=== PATIENT | female | born 1935 | race Asian ===

== ENCOUNTER 2024-07-21 17:15 | Inpatient (IN) | payer MEDICARE ==
[~2024-07-21] VITALS: Ht 152.4 cm; Wt 419.6 kg
[2024-07-21] MEDS ORDERED: REMEDY ESSENTIAL ZINC PASTE 113 GM TOP PRN (21:45)
[2024-07-21] MEDS ORDERED: ATOR80TA PO (22:24)
[2024-07-21] MEDS ORDERED: AMLO-212 PO (22:24)
[2024-07-21] MEDS ORDERED: CELE200C PO (22:24)
[2024-07-21] MEDS ORDERED: ALPR0.5T8 PO (22:24)
[2024-07-21] MEDS ORDERED: APIX5TAB PO (22:24)
[2024-07-21] MEDS ORDERED: FURO20TA4 PO (22:24)
[2024-07-21] MEDS ORDERED: HYDR200T4 PO (22:24)
[2024-07-21] MEDS ORDERED: ASPI-495 PO (22:24)
[2024-07-21] MEDS ORDERED: GABA800T11 PO (22:24)
[2024-07-21] MEDS ORDERED: ZOLP10TA2 PO (22:24)
[2024-07-22 02:23] VITALS: O2SAT 97
[2024-07-22] MEDS: APIXABAN 5 MG TABLET PO SCH (11:38)
[2024-07-22 12:00] VITALS: O2SAT 96
[2024-07-22] MEDS ORDERED: ZOLPIDEM 5 MG TABLET PO PRN (13:45)
[2024-07-22] MEDS: GABAPENTIN 400 MG CAPSULE PO SCH (14:09)
[2024-07-22] MEDS: FUROSEMIDE 20 MG TABLET PO SCH (14:10)
[2024-07-22] MEDS: CELECOXIB 200 MG CAPSULE PO SCH (14:10)
[2024-07-22] MEDS: HYDROXYCHLOROQUINE SULFATE 200 MG TABLET PO SCH (14:10)
[2024-07-22] MEDS: ASPIRIN EC 81 MG TABLET.DR PO SCH (14:11)
[2024-07-22] MEDS: AMLODIPINE 5 MG TABLET PO SCH (14:15)
[2024-07-22 16:29] VITALS: BP 134/62; TEMP 98; O2SAT 98
[2024-07-22] MEDS: ATORVASTATIN 40 MG TABLET PO SCH (20:37)
[2024-07-22 20:42] VITALS: BP 113/46; TEMP 98.1; O2SAT 93
[2024-07-23 06:20] VITALS: BP 115/45; TEMP 98.4; O2SAT 93
[2024-07-23 07:56] LABS: BASOPHILS % (AUTO) 0.8 % (0.0-2.0); EOSINOPHILS # (AUTO) 0.2 K/uL (0.0-0.7); EOSINOPHILS % (AUTO) 2.9 % (0.0-7.0); HEMATOCRIT 29.7 % (31.2-41.9); HEMOGLOBIN 10.1 g/dL (10.9-14.3); LYMPHOCYTES # (AUTO) 0.8 K/uL (0.8-4.8); MEAN CORPUSCULAR HEMOGLOBIN 31.4 uug (24.7-32.8); MEAN CORPUSCULAR HGB CONC 34 g/dL (32.3-35.6); MEAN CORPUSCULAR VOLUME 92.6 fL (75.5-95.3); NEUTROPHILS % (AUTO) 66.3 % (38.5-71.5); PLATELET COUNT (AUTO) 239 K/uL (179-408); RED BLOOD CELL COUNT(AUTO) 3.21 MIL/uL (3.63-4.92); RED CELL DISTRIBUTION WIDTH 16.4 % (12.3-17.7)
[2024-07-23 08:07] LABS: DIFFERENTIAL COMMENT 1
[2024-07-23 08:13] LABS: CALCIUM 8.3 mg/dL (8.5-10.1); CARBON DIOXIDE 26 mmol/L (21-32); CHLORIDE 97 mmol/L (98-107); CREATININE 0.5 mg/dL (0.6-1.3); GLUCOSE 94 mg/dL (74-106); MAGNESIUM 2.2 mg/dL (1.8-2.4); PHOSPHOROUS 2.4 mg/dL (2.5-4.9); POTASSIUM 4.4 mmol/L (3.5-5.1); SODIUM SERUM 132 mmol/L (136-145); UREA NITROGEN, BLOOD 16 mg/dL (7-18)
[2024-07-23 09:22] LABS: ANISOCYTOSIS 1+; EOSINOPHILS % (MANUAL) 3 % (0-8); LYMPHOCYTES % (MANUAL) 14 % (20-40); MONOCYTES % (MANUAL) 10 % (2-10); NEUTROPHILS % (MANUAL) 73 % (42-75); PLATELET ESTIMATE ADEQUATE
[2024-07-23] MEDS: NEUTRA PHOS PACKET PO ONE (13:51)
[2024-07-23 16:31] VITALS: BP 109/59; TEMP 98.5; O2SAT 96
[2024-07-23 19:42] VITALS: BP 102/40; TEMP 98.4; O2SAT 95
[2024-07-24 06:09] VITALS: BP 117/48; TEMP 98.5; O2SAT 95
[2024-07-24 16:00] VITALS: BP 118/53; TEMP 97.6; O2SAT 97
[2024-07-24 20:00] VITALS: BP 118/46; TEMP 98.3; O2SAT 93
[2024-07-25 06:00] VITALS: BP 114/40; TEMP 98; O2SAT 99
[2024-07-25] MEDS: FUROSEMIDE 20 MG TABLET PO SCH (09:53)
[2024-07-25 16:00] VITALS: BP 129/55; TEMP 98.2; O2SAT 98
[2024-07-25 19:32] VITALS: BP 99/41; TEMP 98.3; O2SAT 96
[2024-07-26 06:03] VITALS: BP 111/41; TEMP 98.2; O2SAT 94
[2024-07-26 16:00] VITALS: BP 118/54; TEMP 97.6; O2SAT 96
[2024-07-26 20:00] VITALS: BP 103/41; TEMP 98.6; O2SAT 95
[2024-07-27 06:00] VITALS: BP 123/44; TEMP 98.1; O2SAT 95
[2024-07-27 07:45] LABS: BASOPHILS # (AUTO) 0.1 K/UL (0.0-0.2); BASOPHILS % (AUTO) 1.3 % (0.0-2.0); EOSINOPHILS # (AUTO) 0.1 K/uL (0.0-0.7); EOSINOPHILS % (AUTO) 1.8 % (0.0-7.0); HEMATOCRIT 26.8 % (31.2-41.9); LYMPHOCYTES # (AUTO) 0.8 K/uL (0.8-4.8); LYMPHOCYTES % (AUTO) 16.3 % (20.5-51.5); MEAN CORPUSCULAR HEMOGLOBIN 31.5 uug (24.7-32.8); MEAN CORPUSCULAR HGB CONC 34 g/dL (32.3-35.6); MEAN CORPUSCULAR VOLUME 94.3 fL (75.5-95.3); MONOCYTES # (AUTO) 0.8 K/uL (0.1-1.30); MONOCYTES % (AUTO) 14.5 % (0.0-11.0); NEUTROPHILS # (AUTO) 3.4 K/uL (1.8-8.9); NEUTROPHILS % (AUTO) 66.1 % (38.5-71.5); PLATELET COUNT (AUTO) 252 K/uL (179-408); RED BLOOD CELL COUNT(AUTO) 2.85 MIL/uL (3.63-4.92); RED CELL DISTRIBUTION WIDTH 16.8 % (12.3-17.7); WHITE BLOOD COUNT (AUTO) 5.2 K/uL (3.8-11.8)
[2024-07-27 07:51] LABS: DIFFERENTIAL COMMENT 1
[2024-07-27 07:53] LABS: CALCIUM 8.3 mg/dL (8.5-10.1); CARBON DIOXIDE 27 mmol/L (21-32); CHLORIDE 100 mmol/L (98-107); CREATININE 0.7 mg/dL (0.6-1.3); GLUCOSE 101 mg/dL (74-106); MAGNESIUM 1.6 mg/dL (1.8-2.4); PHOSPHOROUS 3.4 mg/dL (2.5-4.9); POTASSIUM 4.3 mmol/L (3.5-5.1); SODIUM SERUM 133 mmol/L (136-145); UREA NITROGEN, BLOOD 18 mg/dL (7-18)
[2024-07-27] MEDS: MAGNESIUM OXIDE 400 MG TABLET PO SCH (09:46)
[2024-07-27 16:08] VITALS: BP 105/46; TEMP 97.9; O2SAT 98
[2024-07-27 20:00] VITALS: BP 109/42; TEMP 98.3; O2SAT 96
[2024-07-28 06:00] VITALS: BP 126/41; TEMP 98.7; O2SAT 96
[2024-07-28 16:23] VITALS: BP 103/46; TEMP 98.4; O2SAT 96
[2024-07-28 19:50] VITALS: BP 128/43; TEMP 98.4; O2SAT 95
[2024-07-29 06:50] VITALS: BP 130/50; TEMP 98; O2SAT 94
[2024-07-29] MEDS ORDERED: ACETAMINOPHEN 325 MG TABLET PO PRN (07:45)
[2024-07-29 16:10] VITALS: BP 122/52; TEMP 98; O2SAT 97
[2024-07-29 21:25] VITALS: BP 148/64; TEMP 98; O2SAT 99
[2024-07-30 06:06] VITALS: BP 132/58; TEMP 98; O2SAT 100
[2024-07-30 09:58] VITALS: BP 137/52; TEMP 98.6
[2024-07-30 17:58] VITALS: BP 112/47; TEMP 98.2; O2SAT 99
[2024-07-30 20:00] VITALS: BP 136/58; TEMP 98.5; O2SAT 95
[2024-07-30 20:32] VITALS: O2SAT 97
[2024-07-31 05:23] VITALS: BP 140/62; TEMP 98; O2SAT 96
[2024-07-31 16:43] VITALS: BP 109/52; TEMP 97.7; O2SAT 96
[2024-07-31 20:21] VITALS: BP 116/46; TEMP 98.7; O2SAT 97
[2024-07-31 20:45] VITALS: O2SAT 97
[2024-07-31 20:46] VITALS: O2SAT 95
[2024-07-31] MEDS: REMEDY ESSENTIAL ZINC PASTE 113 GM TOP SCH (21:49)
[2024-08-01 05:57] VITALS: BP 116/44; TEMP 97.9; O2SAT 95
[2024-08-01 20:45] VITALS: BP 97/43; TEMP 98.8; O2SAT 96
[2024-08-02 05:40] VITALS: BP 133/53; TEMP 98.6; O2SAT 95
[2024-08-02 06:39] LABS: BASOPHILS % (AUTO) 0.9 % (0.0-2.0); EOSINOPHILS # (AUTO) 0.1 K/uL (0.0-0.7); EOSINOPHILS % (AUTO) 1.8 % (0.0-7.0); HEMATOCRIT 25.8 % (31.2-41.9); HEMOGLOBIN 8.6 g/dL (10.9-14.3); LYMPHOCYTES # (AUTO) 0.8 K/uL (0.8-4.8); LYMPHOCYTES % (AUTO) 19.6 % (20.5-51.5); MEAN CORPUSCULAR HEMOGLOBIN 31.5 uug (24.7-32.8); MEAN CORPUSCULAR HGB CONC 33 g/dL (32.3-35.6); MEAN CORPUSCULAR VOLUME 94.4 fL (75.5-95.3); MONOCYTES # (AUTO) 0.7 K/uL (0.1-1.30); MONOCYTES % (AUTO) 17.4 % (0.0-11.0); NEUTROPHILS # (AUTO) 2.5 K/uL (1.8-8.9); NEUTROPHILS % (AUTO) 60.3 % (38.5-71.5); PLATELET COUNT (AUTO) 258 K/uL (179-408); RED BLOOD CELL COUNT(AUTO) 2.74 MIL/uL (3.63-4.92); RED CELL DISTRIBUTION WIDTH 17.4 % (12.3-17.7); WHITE BLOOD COUNT (AUTO) 4.1 K/uL (3.8-11.8)
[2024-08-02 06:51] LABS: DIFFERENTIAL COMMENT 1
[2024-08-02 07:06] LABS: ALANINE AMINOTRANSFERASE 24 U/L (14-59); ALBUMIN 2.7 g/dL (3.4-5.0); ALKALINE PHOSPHATASE 69 U/L (50-136); ASPARTATE AMINOTRANSFERASE 21 U/L (15-37); BILIRUBIN,TOTAL 0.8 mg/dL (0.2-1.0); CALCIUM 8.5 mg/dL (8.5-10.1); CARBON DIOXIDE 27 mmol/L (21-32); CHLORIDE 100 mmol/L (98-107); CREATININE 0.7 mg/dL (0.6-1.3); GLUCOSE 99 mg/dL (74-106); MAGNESIUM 2.1 mg/dL (1.8-2.4); PHOSPHOROUS 3.4 mg/dL (2.5-4.9); POTASSIUM 4.1 mmol/L (3.5-5.1); SODIUM SERUM 135 mmol/L (136-145); TOTAL PROTEIN, SERUM 6.2 g/dL (6.4-8.2); UREA NITROGEN, BLOOD 19 mg/dL (7-18)
[2024-08-02 10:57] LABS: ANISOCYTOSIS 1+; BAND % (MANUAL) 1 % (0-10); EOSINOPHILS % (MANUAL) 3 % (0-8); LYMPHOCYTES % (MANUAL) 16 % (20-40); MONOCYTES % (MANUAL) 10 % (2-10); NEUTROPHILS % (MANUAL) 70 % (42-75); PLATELET ESTIMATE ADEQUATE
[2024-08-02 15:58] VITALS: BP 111/89; TEMP 97.9; O2SAT 98
[2024-08-02 20:10] VITALS: BP 136/54; TEMP 98.1; O2SAT 95
[2024-08-03 06:15] VITALS: BP 123/47; TEMP 98.1; O2SAT 96
[2024-08-03 16:16] VITALS: BP 120/46; TEMP 97.5; O2SAT 98
[2024-08-03 20:00] VITALS: BP 106/52; TEMP 98.2; O2SAT 97
[2024-08-04 06:00] VITALS: BP 130/50; TEMP 98.1; O2SAT 95
[2024-08-04 16:06] VITALS: BP 114/46; TEMP 98.2; O2SAT 95
[2024-08-04 20:00] VITALS: BP 118/49; TEMP 98.6; O2SAT 95
[2024-08-04 21:02] VITALS: O2SAT 95
[2024-08-05 06:00] VITALS: BP 144/69; TEMP 98.4; O2SAT 97
[2024-08-05] MEDS: APIXABAN 5 MG TABLET PO SCH (08:13)
[2024-08-05 08:23] LABS: BASOPHILS % (AUTO) 1.4 % (0.0-2.0); EOSINOPHILS # (AUTO) 0.1 K/uL (0.0-0.7); EOSINOPHILS % (AUTO) 2.4 % (0.0-7.0); HEMATOCRIT 28.8 % (31.2-41.9); HEMOGLOBIN 9.5 g/dL (10.9-14.3); LYMPHOCYTES # (AUTO) 0.9 K/uL (0.8-4.8); LYMPHOCYTES % (AUTO) 25.3 % (20.5-51.5); MEAN CORPUSCULAR HEMOGLOBIN 31.6 uug (24.7-32.8); MEAN CORPUSCULAR HGB CONC 33 g/dL (32.3-35.6); MEAN CORPUSCULAR VOLUME 95.3 fL (75.5-95.3); MONOCYTES # (AUTO) 0.6 K/uL (0.1-1.30); MONOCYTES % (AUTO) 17.7 % (0.0-11.0); NEUTROPHILS # (AUTO) 1.9 K/uL (1.8-8.9); NEUTROPHILS % (AUTO) 53.2 % (38.5-71.5); PLATELET COUNT (AUTO) 287 K/uL (179-408); RED BLOOD CELL COUNT(AUTO) 3.02 MIL/uL (3.63-4.92); RED CELL DISTRIBUTION WIDTH 18.1 % (12.3-17.7); WHITE BLOOD COUNT (AUTO) 3.6 K/uL (3.8-11.8)
[2024-08-05 08:38] LABS: CALCIUM 8.5 mg/dL (8.5-10.1); CARBON DIOXIDE 29 mmol/L (21-32); CHLORIDE 98 mmol/L (98-107); CREATININE 0.7 mg/dL (0.6-1.3); GLUCOSE 96 mg/dL (74-106); MAGNESIUM 1.4 mg/dL (1.8-2.4); PHOSPHOROUS 3.8 mg/dL (2.5-4.9); POTASSIUM 4.2 mmol/L (3.5-5.1); SODIUM SERUM 134 mmol/L (136-145); UREA NITROGEN, BLOOD 13 mg/dL (7-18)
[2024-08-05 08:43] LABS: DIFFERENTIAL COMMENT 1
[2024-08-05 08:44] LABS: LYMPHOCYTES % (MANUAL) 0 % (20-40); NEUTROPHILS % (MANUAL) 0 % (42-75)
[2024-08-05] MEDS ORDERED: CELECOXIB 200 MG CAPSULE PO SCH (09:00)
[2024-08-05] MEDS: MAGNESIUM OXIDE 400 MG TABLET PO ONE (09:54)
== END 2024-08-05 10:40 | disposition home health service (06) | DRG 189 ==
PROVIDERS: ADMIT Physical Medicine & Rehabilitation Pain Medicine; ATTEND Physical Medicine & Rehabilitation Pain Medicine
DX: J96.01 Acute respiratory failure with hypoxia (principal); I21.A1 Myocardial infarction type 2; I26.99 Other pulmonary embolism without acute cor pulmonale; I50.33 Acute on chronic diastolic (congestive) heart failure; I82.412 Acute embolism and thrombosis of left femoral vein; E22.2 Syndrome of inappropriate secretion of antidiuretic hormone; E44.0 Moderate protein-calorie malnutrition; I11.0 Hypertensive heart disease with heart failure; D64.9 Anemia, unspecified; I25.10 Atherosclerotic heart disease of native coronary artery without angina pectoris; I70.0 Atherosclerosis of aorta; I27.20 Pulmonary hypertension, unspecified; Z79.01 Long term (current) use of anticoagulants; Z90.3 Acquired absence of stomach [part of]; Z86.16 Personal history of COVID-19; Z96.653 Presence of artificial knee joint, bilateral; E73.9 Lactose intolerance, unspecified; E86.0 Dehydration; G62.9 Polyneuropathy, unspecified; I48.0 Paroxysmal atrial fibrillation; Z85.028 Personal history of other malignant neoplasm of stomach; Z95.0 Presence of cardiac pacemaker
CPT/HCPCS: 36415; 70030-TC; 71045; 83735; 84100; 84484; 85025; 97535-GO-CO; A4663; A6213

== ENCOUNTER 2024-08-19 17:21 | Inpatient (IN) | payer MEDICARE ==
[~2024-08-19] VITALS: Ht 152.4 cm; Wt 50.8 kg
[~2024-08-19 17:21] MED LIST: AMLO-212 PO; APIX5TAB PO; ASPI-495 PO; ATOR80TA PO; CELE200C PO; FURO20TA4 PO; GABA800T11 PO; HYDR200T4 PO; ZOLP10TA2 PO
[2024-08-19 17:43] VITALS: BP 147/64; TEMP 98.7; O2SAT 96
[2024-08-19] MEDS ORDERED: METHOCARBAMOL 500 MG TABLET PO PRN (20:00)
[2024-08-19] MEDS: ATORVASTATIN 40 MG TABLET PO SCH (21:32)
[2024-08-19] MEDS: APIXABAN 2.5 MG TABLET PO SCH (21:33)
[2024-08-20] MEDS: QUETIAPINE FUMARATE 25 MG TABLET PO PRN (03:02)
[2024-08-20] MEDS: PANTOPRAZOLE SODIUM 40 MG TABLET.DR PO SCH (06:19)
[2024-08-20] MEDS ORDERED: FUROSEMIDE 20 MG TABLET PO SCH (09:00)
[2024-08-20] MEDS ORDERED: Medication Not On Formulary EA (Gabapentin 800 MG) PO SCH (09:00)
[2024-08-20] MEDS ORDERED: Medication Not On Formulary EA (Atorvastatin Calcium (Lipitor) 80 MG) PO SCH (09:00)
[2024-08-20] MEDS ORDERED: APIXABAN 5 MG TABLET PO SCH (09:00)
[2024-08-20] MEDS ORDERED: APIX2.5T PO (09:23)
[2024-08-20] MEDS: ASPIRIN 81 MG TAB.CHEW PO SCH (09:47)
[2024-08-20] MEDS: AMLODIPINE 5 MG TABLET PO SCH (09:47)
[2024-08-20] MEDS: HYDROXYCHLOROQUINE SULFATE 200 MG TABLET PO SCH (10:28)
[2024-08-20] MEDS: CELECOXIB 200 MG CAPSULE PO SCH (10:28)
[2024-08-20] MEDS: GABAPENTIN 400 MG CAPSULE PO SCH (10:28)
[2024-08-20 16:14] VITALS: BP 133/65; TEMP 97.6; O2SAT 98
[2024-08-20 20:03] VITALS: BP 125/53; TEMP 98.1; O2SAT 97
[2024-08-20] MEDS ORDERED: Medication Not On Formulary EA (Zolpidem Tartrate (Ambien) 10 MG) PO SCH (21:00)
[2024-08-20] MEDS: ATORVASTATIN 40 MG TABLET PO SCH (22:48)
[2024-08-20] MEDS: ZOLPIDEM 5 MG TABLET PO SCH (22:48)
[2024-08-21 06:40] VITALS: BP 118/53; TEMP 98; O2SAT 94
[2024-08-21] MEDS: ASPIRIN EC 81 MG TABLET.DR PO SCH (09:00)
[2024-08-21] MEDS: AMLODIPINE 5 MG TABLET PO SCH (09:00)
[2024-08-21 16:20] VITALS: BP 103/48; TEMP 97.6; O2SAT 98
[2024-08-22 06:21] VITALS: BP 124/54; TEMP 97.2; O2SAT 97
[2024-08-22 10:11] LABS: BASOPHILS # (AUTO) 0.1 K/UL (0.0-0.2); BASOPHILS % (AUTO) 1.2 % (0.0-2.0); EOSINOPHILS # (AUTO) 0.1 K/uL (0.0-0.7); EOSINOPHILS % (AUTO) 1.3 % (0.0-7.0); HEMATOCRIT 31.4 % (31.2-41.9); HEMOGLOBIN 10.4 g/dL (10.9-14.3); LYMPHOCYTES # (AUTO) 0.4 K/uL (0.8-4.8); LYMPHOCYTES % (AUTO) 5.8 % (20.5-51.5); MEAN CORPUSCULAR HEMOGLOBIN 31.9 uug (24.7-32.8); MEAN CORPUSCULAR HGB CONC 33 g/dL (32.3-35.6); MEAN CORPUSCULAR VOLUME 96.5 fL (75.5-95.3); MONOCYTES # (AUTO) 0.5 K/uL (0.1-1.30); NEUTROPHILS # (AUTO) 5.9 K/uL (1.8-8.9); NEUTROPHILS % (AUTO) 84.7 % (38.5-71.5); PLATELET COUNT (AUTO) 244 K/uL (179-408); RED BLOOD CELL COUNT(AUTO) 3.26 MIL/uL (3.63-4.92); RED CELL DISTRIBUTION WIDTH 17.9 % (12.3-17.7); WHITE BLOOD COUNT (AUTO) 6.9 K/uL (3.8-11.8)
[2024-08-22 10:26] LABS: DIFFERENTIAL COMMENT 1
[2024-08-22 10:27] LABS: CALCIUM 8.6 mg/dL (8.5-10.1); CARBON DIOXIDE 26 mmol/L (21-32); CHLORIDE 95 mmol/L (98-107); CREATININE 1.4 mg/dL (0.6-1.3); GLUCOSE 182 mg/dL (74-106); POTASSIUM 4.7 mmol/L (3.5-5.1); SODIUM SERUM 130 mmol/L (136-145); UREA NITROGEN, BLOOD 24 mg/dL (7-18)
[2024-08-22 10:33] LABS: ALANINE AMINOTRANSFERASE 25 U/L (14-59); ALBUMIN 2.8 g/dL (3.4-5.0); ALKALINE PHOSPHATASE 73 U/L (50-136); ASPARTATE AMINOTRANSFERASE 21 U/L (15-37); BILIRUBIN,TOTAL 0.5 mg/dL (0.2-1.0); TOTAL PROTEIN, SERUM 6.6 g/dL (6.4-8.2)
[2024-08-22 10:37] LABS: LACTIC ACID 3.3 mmol/L (0.4-2.0)
[2024-08-22 11:09] LABS: *CLARITY,URINE CLOUDY (CLEAR); *COLOR,URINE YELLOW (YELLOW); LEUKOCYTE ESTERASE ,URINE 4+ (NEGATIVE); NITRITE, URINE NEGATIVE (NEGATIVE)
[2024-08-22 11:10] LABS: *BLOOD, URINE 4+ (NEGATIVE); *UROBILINOGEN,URINE 0.2 E.U./dl (NORMAL)
[2024-08-22 11:11] LABS: *BILIRUBIN,URIN NEGATIVE (NEGATIVE); *KETONES,URINE NEGATIVE (NEGATIVE); *PROTEIN,URINE 2+ (NEGATIVE); UGLUCOSE NEGATIVE (NEGATIVE)
[2024-08-22 11:18] LABS: BACTERIA,URINE MANY /HPF (NONE SEEN); RBC,URINE 80-100 /HPF (0-3); WBC,URINE TNTC /HPF (0-3)
[2024-08-22] MEDS: NITROFURANTOIN/NITROFURAN MAC 100 MG CAPSULE PO SCH (12:33)
[2024-08-22] MEDS: CEphaleXIN 250 MG CAPSULE PO SCH (14:20)
[2024-08-22 16:31] VITALS: BP 124/60; TEMP 97.6; O2SAT 98
[2024-08-22 19:59] VITALS: BP 103/54; TEMP 97.9; O2SAT 94
[2024-08-23 05:48] VITALS: BP 129/57; TEMP 98; O2SAT 95
[2024-08-23 07:11] LABS: BASOPHILS # (AUTO) 0.1 K/UL (0.0-0.2); BASOPHILS % (AUTO) 2.4 % (0.0-2.0); EOSINOPHILS # (AUTO) 0.5 K/uL (0.0-0.7); EOSINOPHILS % (AUTO) 8.6 % (0.0-7.0); HEMATOCRIT 30.7 % (31.2-41.9); HEMOGLOBIN 10.4 g/dL (10.9-14.3); LYMPHOCYTES # (AUTO) 0.5 K/uL (0.8-4.8); LYMPHOCYTES % (AUTO) 8.9 % (20.5-51.5); MEAN CORPUSCULAR HEMOGLOBIN 32.3 uug (24.7-32.8); MEAN CORPUSCULAR HGB CONC 34 g/dL (32.3-35.6); MEAN CORPUSCULAR VOLUME 95.2 fL (75.5-95.3); MONOCYTES # (AUTO) 0.7 K/uL (0.1-1.30); MONOCYTES % (AUTO) 13.6 % (0.0-11.0); NEUTROPHILS # (AUTO) 3.6 K/uL (1.8-8.9); NEUTROPHILS % (AUTO) 66.5 % (38.5-71.5); PLATELET COUNT (AUTO) 246 K/uL (179-408); RED BLOOD CELL COUNT(AUTO) 3.23 MIL/uL (3.63-4.92); RED CELL DISTRIBUTION WIDTH 16.9 % (12.3-17.7); WHITE BLOOD COUNT (AUTO) 5.4 K/uL (3.8-11.8)
[2024-08-23 07:15] LABS: DIFFERENTIAL COMMENT 1
[2024-08-23 07:25] LABS: PHOSPHOROUS 5.1 mg/dL (2.5-4.9)
[2024-08-23 15:23] VITALS: BP 116/53; TEMP 98.2; O2SAT 96
[2024-08-23 20:00] VITALS: BP 115/51; TEMP 98.3; O2SAT 95
[2024-08-24] VITALS (9 sets, daily range): BP systolic 114–130; BP diastolic 50–59; TEMP 97.8–98.5; O2SAT 93–98
[2024-08-24 08:24] LABS: BASOPHILS # (AUTO) 0.1 K/UL (0.0-0.2); BASOPHILS % (AUTO) 1.3 % (0.0-2.0); EOSINOPHILS # (AUTO) 0.1 K/uL (0.0-0.7); EOSINOPHILS % (AUTO) 1.1 % (0.0-7.0); HEMATOCRIT 28.7 % (31.2-41.9); HEMOGLOBIN 9.7 g/dL (10.9-14.3); LYMPHOCYTES # (AUTO) 0.9 K/uL (0.8-4.8); LYMPHOCYTES % (AUTO) 16.7 % (20.5-51.5); MEAN CORPUSCULAR HEMOGLOBIN 32.5 uug (24.7-32.8); MEAN CORPUSCULAR HGB CONC 34 g/dL (32.3-35.6); MEAN CORPUSCULAR VOLUME 95.9 fL (75.5-95.3); MONOCYTES # (AUTO) 0.8 K/uL (0.1-1.30); MONOCYTES % (AUTO) 15.2 % (0.0-11.0); NEUTROPHILS # (AUTO) 3.5 K/uL (1.8-8.9); NEUTROPHILS % (AUTO) 65.7 % (38.5-71.5); PLATELET COUNT (AUTO) 250 K/uL (179-408); RED BLOOD CELL COUNT(AUTO) 2.99 MIL/uL (3.63-4.92); RED CELL DISTRIBUTION WIDTH 17.2 % (12.3-17.7); WHITE BLOOD COUNT (AUTO) 5.3 K/uL (3.8-11.8)
[2024-08-24 08:43] LABS: ALANINE AMINOTRANSFERASE 27 U/L (14-59); ALBUMIN 2.7 g/dL (3.4-5.0); ALKALINE PHOSPHATASE 58 U/L (50-136); ASPARTATE AMINOTRANSFERASE 27 U/L (15-37); BILIRUBIN,TOTAL 0.5 mg/dL (0.2-1.0); CALCIUM 8.7 mg/dL (8.5-10.1); CARBON DIOXIDE 31 mmol/L (21-32); CHLORIDE 99 mmol/L (98-107); CREATININE 1.1 mg/dL (0.6-1.3); GLUCOSE 115 mg/dL (74-106); MAGNESIUM 1.9 mg/dL (1.8-2.4); PHOSPHOROUS 4.2 mg/dL (2.5-4.9); POTASSIUM 4.2 mmol/L (3.5-5.1); SODIUM SERUM 136 mmol/L (136-145); TOTAL PROTEIN, SERUM 6.2 g/dL (6.4-8.2); UREA NITROGEN, BLOOD 20 mg/dL (7-18)
[2024-08-24 08:51] LABS: DIFFERENTIAL COMMENT 1
[2024-08-24 10:36] LABS: ANISOCYTOSIS 1+; EOSINOPHILS % (MANUAL) 1 % (0-8); LYMPHOCYTES % (MANUAL) 11 % (20-40); MONOCYTES % (MANUAL) 15 % (2-10); NEUTROPHILS % (MANUAL) 73 % (42-75); PLATELET ESTIMATE ADEQUATE
[2024-08-24 12:27] LABS: BASOPHILS % (AUTO) 0.7 % (0.0-2.0); EOSINOPHILS % (AUTO) 0.6 % (0.0-7.0); HEMATOCRIT 29.7 % (31.2-41.9); HEMOGLOBIN 10.2 g/dL (10.9-14.3); LYMPHOCYTES % (AUTO) 14.4 % (20.5-51.5); MEAN CORPUSCULAR HEMOGLOBIN 32.7 uug (24.7-32.8); MEAN CORPUSCULAR HGB CONC 34 g/dL (32.3-35.6); MEAN CORPUSCULAR VOLUME 95.3 fL (75.5-95.3); MONOCYTES # (AUTO) 1.4 K/uL (0.1-1.30); MONOCYTES % (AUTO) 20.7 % (0.0-11.0); NEUTROPHILS # (AUTO) 4.4 K/uL (1.8-8.9); NEUTROPHILS % (AUTO) 63.6 % (38.5-71.5); PLATELET COUNT (AUTO) 252 K/uL (179-408); RED BLOOD CELL COUNT(AUTO) 3.12 MIL/uL (3.63-4.92); RED CELL DISTRIBUTION WIDTH 16.9 % (12.3-17.7); WHITE BLOOD COUNT (AUTO) 6.9 K/uL (3.8-11.8)
[2024-08-24 12:30] LABS: DIFFERENTIAL COMMENT 1
[2024-08-24 12:36] LABS: CALCIUM 9.1 mg/dL (8.5-10.1); CARBON DIOXIDE 29 mmol/L (21-32); CHLORIDE 97 mmol/L (98-107); GLUCOSE 120 mg/dL (74-106); POTASSIUM 4.1 mmol/L (3.5-5.1); SODIUM SERUM 134 mmol/L (136-145); UREA NITROGEN, BLOOD 19 mg/dL (7-18)
[2024-08-24 13:32] LABS: LYMPHOCYTES % (MANUAL) 11 % (20-40); NEUTROPHILS % (MANUAL) 76 % (42-75)
[2024-08-24 13:33] LABS: MONOCYTES % (MANUAL) 13 % (2-10); PLATELET ESTIMATE ADEQUATE
== END 2024-08-24 17:28 | disposition short-term general hospital (02) | DRG 56 ==
PROVIDERS: ADMIT Physical Medicine & Rehabilitation Pain Medicine; ATTEND Physical Medicine & Rehabilitation Pain Medicine
DX: I69.331 Monoplegia of upper limb following cerebral infarction affecting right dominant side (principal); I63.9 Cerebral infarction, unspecified; E87.3 Alkalosis; E87.1 Hypo-osmolality and hyponatremia; N17.9 Acute kidney failure, unspecified; I69.392 Facial weakness following cerebral infarction; E56.9 Vitamin deficiency, unspecified; I48.91 Unspecified atrial fibrillation; I11.0 Hypertensive heart disease with heart failure; I50.9 Heart failure, unspecified; M32.9 Systemic lupus erythematosus, unspecified; Z86.718 Personal history of other venous thrombosis and embolism
CPT/HCPCS: 36415; 70030-TC; 70450; 71045; 83605; 83735; 83921; 84100; 84484; 85025; 85730; 86850; 86900; 86901; 93005; J7040

== ENCOUNTER 2024-08-24 17:28 | Inpatient (IN) | payer MEDICARE ==
[~2024-08-24] VITALS: Ht 152.4 cm; Wt 42.8 kg
[2024-08-24] VITALS (25 sets, daily range): BP systolic 126–156; BP diastolic 53–70; TEMP 97–98.2; O2SAT 90–97
[~2024-08-24 17:28] MED LIST changes: +APIX2.5T PO; -APIX5TAB PO; -FURO20TA4 PO
[2024-08-24] MEDS ORDERED: MEROPENEM 1 G in IV NORMAL SALINE 100 ML IV SCH (18:30)
[2024-08-24] MEDS ORDERED: ACETAMINOPHEN 650 MG SUPP.RECT RC PRN (18:30)
[2024-08-24] MEDS ORDERED: ONDANSETRON 4 MG/2 ML VIAL IV PRN (18:30)
[2024-08-24] MEDS: IV D5/ 0.9% NACL 1,000 ML IV PRN (18:56)
[2024-08-24] MEDS: MEROPENEM 1 G in IV NORMAL SALINE 100 ML IV SCH (20:59)
[2024-08-25] VITALS (36 sets, daily range): BP systolic 117–187; BP diastolic 36–132; TEMP 97–99; O2SAT 91–97
[2024-08-25] MEDS: MORPHINE SULFATE 2 MG/1 ML DISP.SYRIN IV PRN (03:36)
[2024-08-25 05:14] LABS: EOSINOPHILS % (AUTO) 0.1 % (0.0-7.0); HEMATOCRIT 29.8 % (31.2-41.9); HEMOGLOBIN 10.2 g/dL (10.9-14.3); LYMPHOCYTES # (AUTO) 0.5 K/uL (0.8-4.8); LYMPHOCYTES % (AUTO) 11.1 % (20.5-51.5); MEAN CORPUSCULAR HEMOGLOBIN 32.5 uug (24.7-32.8); MEAN CORPUSCULAR HGB CONC 34 g/dL (32.3-35.6); MEAN CORPUSCULAR VOLUME 95.3 fL (75.5-95.3); MONOCYTES # (AUTO) 0.5 K/uL (0.1-1.30); MONOCYTES % (AUTO) 10.2 % (0.0-11.0); NEUTROPHILS # (AUTO) 3.7 K/uL (1.8-8.9); NEUTROPHILS % (AUTO) 77.6 % (38.5-71.5); PLATELET COUNT (AUTO) 252 K/uL (179-408); RED BLOOD CELL COUNT(AUTO) 3.12 MIL/uL (3.63-4.92); RED CELL DISTRIBUTION WIDTH 16.6 % (12.3-17.7); WHITE BLOOD COUNT (AUTO) 4.8 K/uL (3.8-11.8)
[2024-08-25 05:51] LABS: IRON, SERUM 71 ug/dL (50-175)
[2024-08-25 06:02] LABS: ALANINE AMINOTRANSFERASE 36 U/L (14-59); ALKALINE PHOSPHATASE 65 U/L (50-136); ASPARTATE AMINOTRANSFERASE 35 U/L (15-37); BILIRUBIN,TOTAL 0.4 mg/dL (0.2-1.0); CALCIUM 8.5 mg/dL (8.5-10.1); CARBON DIOXIDE 29 mmol/L (21-32); CHLORIDE 100 mmol/L (98-107); CREATININE 0.8 mg/dL (0.6-1.3); GLUCOSE 158 mg/dL (74-106); MAGNESIUM 1.9 mg/dL (1.8-2.4); PHOSPHOROUS 3.2 mg/dL (2.5-4.9); POTASSIUM 3.9 mmol/L (3.5-5.1); SODIUM SERUM 136 mmol/L (136-145); UREA NITROGEN, BLOOD 15 mg/dL (7-18)
[2024-08-25 06:06] LABS: THYROID STIMULATING HORMONE 1.738 mIU/mL (0.358-3.740)
[2024-08-25 06:35] LABS: CHOLESTEROL 130 mg/dL (<200); HDL CHOLESTEROL 65 mg/dL (40-60); TRIGLYCERIDES 53 MG/DL (30-150)
[2024-08-25 07:39] LABS: ERYTHROCYTE SEDIMENTATION RATE 106 MM/HR (0-20)
[2024-08-25 08:12] LABS: ABG BASE EXCESS 0.6 mmol/L (-2.0-3.0); ABG HCO3 23.7 mmol/L (21.0-28.0); ABG PCO2 32.8 mmHg (32.0-45.0); ABG PH 7.476 (7.350-7.450); ABG PO2 89.3 mmHg (83.0-108.0); ABG SITE RIGHT RADIAL; ABG TOTAL HEMOGLOBIN 11.1 G/dL (12.0-16.0); AaDO2 97.4 mmHg; COHb 0.5 % (0.5-1.5); MetHb 0.3 % (0.0-1.5); O2Hb 96.3 % (94.0-98.0)
[2024-08-25] MEDS: PANTOPRAZOLE SODIUM 40 MG VIAL IV SCH (08:54)
[2024-08-25] MEDS: METOPROLOL TARTRATE 5 MG/5 ML VIAL IVP ONE (10:43)
[2024-08-25] MEDS: METOPROLOL TARTRATE 5 MG/5 ML VIAL IVP PRN (13:35)
[2024-08-25] MEDS: LORAZEPAM 2 MG/1 ML VIAL IV PRN (22:24)
[2024-08-26] VITALS (23 sets, daily range): BP systolic 90–175; BP diastolic 53–123; TEMP 97.6–98.8; O2SAT 93–99
[2024-08-26 05:09] LABS: BASOPHILS % (AUTO) 0.6 % (0.0-2.0); EOSINOPHILS % (AUTO) 0.1 % (0.0-7.0); HEMATOCRIT 32.5 % (31.2-41.9); HEMOGLOBIN 10.9 g/dL (10.9-14.3); LYMPHOCYTES # (AUTO) 0.8 K/uL (0.8-4.8); LYMPHOCYTES % (AUTO) 12.5 % (20.5-51.5); MEAN CORPUSCULAR HGB CONC 34 g/dL (32.3-35.6); MEAN CORPUSCULAR VOLUME 94.9 fL (75.5-95.3); MONOCYTES # (AUTO) 0.9 K/uL (0.1-1.30); MONOCYTES % (AUTO) 13.9 % (0.0-11.0); NEUTROPHILS # (AUTO) 4.6 K/uL (1.8-8.9); NEUTROPHILS % (AUTO) 72.9 % (38.5-71.5); PLATELET COUNT (AUTO) 267 K/uL (179-408); RED BLOOD CELL COUNT(AUTO) 3.42 MIL/uL (3.63-4.92); RED CELL DISTRIBUTION WIDTH 16.5 % (12.3-17.7); WHITE BLOOD COUNT (AUTO) 6.4 K/uL (3.8-11.8)
[2024-08-26 05:28] LABS: CALCIUM 8.4 mg/dL (8.5-10.1); CARBON DIOXIDE 30 mmol/L (21-32); CHLORIDE 101 mmol/L (98-107); CREATININE 0.8 mg/dL (0.6-1.3); GLUCOSE 131 mg/dL (74-106); MAGNESIUM 1.4 mg/dL (1.8-2.4); PHOSPHOROUS 2.3 mg/dL (2.5-4.9); POTASSIUM 3.1 mmol/L (3.5-5.1); SODIUM SERUM 140 mmol/L (136-145); UREA NITROGEN, BLOOD 12 mg/dL (7-18)
[2024-08-26] MEDS: MAGNESIUM SULFATE/D5W 100 ML IV SCH (09:36)
[2024-08-26] MEDS: POTASSIUM PHOSPHATE MM 15 MMOL in IV NORMAL SALINE 250 ML IV ONE (09:54)
[2024-08-26] MEDS: ACETAMINOPHEN 325 MG TABLET PO PRN (11:42)
[2024-08-26] MEDS: GABAPENTIN 400 MG CAPSULE PO SCH (21:18)
[2024-08-26] MEDS: APIXABAN 2.5 MG TABLET PO SCH (21:27)
[2024-08-27] VITALS (17 sets, daily range): BP systolic 108–186; BP diastolic 45–127; TEMP 97.7–98.8; O2SAT 94–99
[2024-08-27 05:35] LABS: BASOPHILS % (AUTO) 0.6 % (0.0-2.0); EOSINOPHILS % (AUTO) 0.3 % (0.0-7.0); HEMATOCRIT 30.8 % (31.2-41.9); HEMOGLOBIN 10.5 g/dL (10.9-14.3); LYMPHOCYTES # (AUTO) 0.8 K/uL (0.8-4.8); LYMPHOCYTES % (AUTO) 12.9 % (20.5-51.5); MEAN CORPUSCULAR HEMOGLOBIN 32.2 uug (24.7-32.8); MEAN CORPUSCULAR HGB CONC 34 g/dL (32.3-35.6); MEAN CORPUSCULAR VOLUME 94.9 fL (75.5-95.3); MONOCYTES % (AUTO) 14.8 % (0.0-11.0); NEUTROPHILS # (AUTO) 4.6 K/uL (1.8-8.9); NEUTROPHILS % (AUTO) 71.4 % (38.5-71.5); PLATELET COUNT (AUTO) 264 K/uL (179-408); RED BLOOD CELL COUNT(AUTO) 3.24 MIL/uL (3.63-4.92); RED CELL DISTRIBUTION WIDTH 16.6 % (12.3-17.7); WHITE BLOOD COUNT (AUTO) 6.5 K/uL (3.8-11.8)
[2024-08-27 05:52] LABS: DIFFERENTIAL COMMENT 1
[2024-08-27 05:59] LABS: ALANINE AMINOTRANSFERASE 33 U/L (14-59); ALBUMIN 2.8 g/dL (3.4-5.0); ALKALINE PHOSPHATASE 60 U/L (50-136); ASPARTATE AMINOTRANSFERASE 34 U/L (15-37); BILIRUBIN,TOTAL 0.5 mg/dL (0.2-1.0); CALCIUM 7.8 mg/dL (8.5-10.1); CARBON DIOXIDE 31 mmol/L (21-32); CHLORIDE 101 mmol/L (98-107); CREATININE 0.5 mg/dL (0.6-1.3); GLUCOSE 133 mg/dL (74-106); MAGNESIUM 2.2 mg/dL (1.8-2.4); PHOSPHOROUS 2.4 mg/dL (2.5-4.9); SODIUM SERUM 140 mmol/L (136-145); TOTAL PROTEIN, SERUM 6.5 g/dL (6.4-8.2); UREA NITROGEN, BLOOD 7 mg/dL (7-18)
[2024-08-27] MEDS: CEFTRIAXONE 1 G in IV DEXTROSE 5% 50 ML IV SCH (08:57)
[2024-08-27] MEDS: levETIRAcetam 500 MG TABLET PO SCH (12:45)
[2024-08-27] MEDS: LOPERAMIDE HCL 2 MG CAPSULE PO PRN (14:58)
[2024-08-27] MEDS: NEUTRA PHOS PACKET PO ONE (16:14)
[2024-08-28] VITALS (7 sets, daily range): BP systolic 127–156; BP diastolic 55–67; TEMP 97.3–98.7; O2SAT 95–98
[2024-08-28] MEDS: LORAZEPAM 0.5 MG TABLET PO PRN (01:13)
[2024-08-28] MEDS: PANTOPRAZOLE ORAL SUSPENSION 40 MG SUSPDR.PKT PO SCH (06:11)
[2024-08-28 07:10] LABS: CALCIUM 7.4 mg/dL (8.5-10.1); CARBON DIOXIDE 33 mmol/L (21-32); CREATININE 0.6 mg/dL (0.6-1.3); GLUCOSE 107 mg/dL (74-106); PHOSPHOROUS 2.9 mg/dL (2.5-4.9); UREA NITROGEN, BLOOD 11 mg/dL (7-18)
[2024-08-28 07:20] LABS: CHLORIDE 103 mmol/L (98-107); SODIUM SERUM 141 mmol/L (136-145)
[2024-08-28 08:09] LABS: POTASSIUM 2.5 mmol/L (3.5-5.1)
[2024-08-28] MEDS ORDERED: POTASSIUM CHLORIDE 50 ML IV SCH (09:00)
[2024-08-28] MEDS ORDERED: POTASSIUM CHLORIDE 20 MEQ TAB.PRT.SR PO ONE ×2 (09:15→14:00)
[2024-08-28] MEDS: POTASSIUM CHLORIDE 20 MEQ POWDER PACKET PO ONE ×2 (09:48→13:36)
[2024-08-28 15:05] LABS: CALCIUM 7.6 mg/dL (8.5-10.1); CARBON DIOXIDE 29 mmol/L (21-32); CHLORIDE 104 mmol/L (98-107); CREATININE 0.6 mg/dL (0.6-1.3); GLUCOSE 95 mg/dL (74-106); POTASSIUM 4.6 mmol/L (3.5-5.1); SODIUM SERUM 139 mmol/L (136-145); UREA NITROGEN, BLOOD 10 mg/dL (7-18)
[2024-08-28] MEDS: ZOLPIDEM 5 MG TABLET PO PRN (20:59)
[2024-08-29] VITALS: BP 141/65; TEMP 97.9; O2SAT 97
[2024-08-29 06:00] VITALS: BP 157/68; TEMP 99.1; O2SAT 95
[2024-08-29 08:00] VITALS: BP 153/63; TEMP 97.6; O2SAT 98
[2024-08-29] MEDS ORDERED: METOPROLOL TARTRATE 5 MG/5 ML VIAL IVP PRN (09:45)
[2024-08-29 12:00] VITALS: BP 132/49; TEMP 98.4; O2SAT 100
[2024-08-29] MEDS ORDERED: MULT-1045 PO (14:07)
[2024-08-29] MEDS ORDERED: ACET325T53 PO (14:07)
[2024-08-29] MEDS ORDERED: ACID1TAB4 PO (14:07)
[2024-08-29] MEDS ORDERED: GABA-536 PO (14:07)
[2024-08-29] MEDS ORDERED: LEVE500T9 PO (14:07)
[2024-08-29] MEDS ORDERED: AMIN30LI2 PO (14:07)
[2024-08-29] MEDS ORDERED: PANT40SU2 PO (14:07)
[2024-08-29] MEDS ORDERED: ZOLP5TAB2 PO (14:07)
[2024-08-29 16:50] VITALS: BP 145/50; TEMP 97.8; O2SAT 99
[2024-08-29] MEDS ORDERED: levETIRAcetam 500 MG TABLET PO SCH (21:00)
== END 2024-08-29 17:30 | DRG 871 ==
LOC: CCU 17:28 → TELE3 08-27 12:59
PROVIDERS: ADMIT Internal Medicine; ATTEND Internal Medicine
PROC: 05HC33Z Insertion of Infusion Device into Left Basilic Vein, Percutaneous Approach (ICD-10-PCS; principal; 2024-08-27)
DX: A41.9 Sepsis, unspecified organism (principal); E43 Unspecified severe protein-calorie malnutrition; G92.8 Other toxic encephalopathy; N39.0 Urinary tract infection, site not specified; F01.A3 Vascular dementia, mild, with mood disturbance; F01.A4 Vascular dementia, mild, with anxiety; D68.59 Other primary thrombophilia; E87.1 Hypo-osmolality and hyponatremia; I50.30 Unspecified diastolic (congestive) heart failure; Z86.73 Personal history of transient ischemic attack (TIA), and cerebral infarction without residual deficits; G93.89 Other specified disorders of brain; M32.9 Systemic lupus erythematosus, unspecified; G89.29 Other chronic pain; Z87.81 Personal history of (healed) traumatic fracture; Z74.09 Other reduced mobility; I48.0 Paroxysmal atrial fibrillation; G40.909 Epilepsy, unspecified, not intractable, without status epilepticus; G62.9 Polyneuropathy, unspecified; R09.02 Hypoxemia; Z96.652 Presence of left artificial knee joint; E78.5 Hyperlipidemia, unspecified; E83.39 Other disorders of phosphorus metabolism; D64.9 Anemia, unspecified; R73.9 Hyperglycemia, unspecified; I11.0 Hypertensive heart disease with heart failure
CPT/HCPCS: 36415; 36600; 70450; 70551; 71045; 82803; 83550; 83735; 84100; 84443; 84484; 85025; 85610; 85651; 93005; 95819; A4606; A4663; A6213; G0378; J0696; J2060; J2185; J2270; J2470; J3475; J3490; J7042

== ENCOUNTER 2024-08-29 20:05 | Inpatient (IN) | payer MEDICARE ==
[~2024-08-29] VITALS: Ht 152.4 cm; Wt 42.8 kg
[2024-08-29 19:00] VITALS: BP 130/54; TEMP 97.9
[~2024-08-29 20:05] MED LIST changes: +ACET325T53 PO; +ACID1TAB4 PO; +AMIN30LI2 PO; +GABA-536 PO; +LEVE500T9 PO; +MULT-1045 PO; +PANT40SU2 PO; +ZOLP5TAB2 PO
[2024-08-29] MEDS ORDERED: REMEDY ESSENTIAL ZINC PASTE 113 GM TOP PRN (23:30)
[2024-08-30] MEDS ORDERED: ZOLPIDEM 5 MG TABLET PO PRN (00:30)
[2024-08-30 15:16] VITALS: BP 139/52; TEMP 98.2; O2SAT 97
[2024-08-30] MEDS: ACETAMINOPHEN 325 MG TABLET PO ONE (17:51)
[2024-08-30 19:53] VITALS: BP 150/61; TEMP 98.5; O2SAT 97
[2024-08-30] MEDS: levETIRAcetam 500 MG TABLET PO SCH (20:19)
[2024-08-30] MEDS: APIXABAN 2.5 MG TABLET PO SCH (20:20)
[2024-08-30] MEDS ORDERED: GABAPENTIN 400 MG CAPSULE ONE (21:42)
[2024-08-30] MEDS: GABAPENTIN 400 MG CAPSULE PO SCH (21:50)
[2024-08-31 05:10] VITALS: BP 137/56; TEMP 98.4; O2SAT 96
[2024-08-31] MEDS: PANTOPRAZOLE ORAL SUSPENSION 40 MG SUSPDR.PKT PO SCH (06:17)
[2024-08-31] MEDS: ASPIRIN EC 81 MG TABLET.DR PO SCH (09:39)
[2024-08-31] MEDS: ACIDOPHILUS/BULGARICUS CHEW TAB PO SCH (09:40)
[2024-08-31] MEDS: AMLODIPINE 5 MG TABLET PO SCH (09:40)
[2024-08-31] MEDS: MULTIVITAMINS,THERAPEUTIC TABLET PO SCH (09:41)
[2024-08-31] MEDS: HYDROXYCHLOROQUINE SULFATE 200 MG TABLET PO SCH (09:41)
[2024-08-31 15:43] LABS: *BILIRUBIN,URIN NEGATIVE (NEGATIVE); *BLOOD, URINE NEGATIVE (NEGATIVE); *CLARITY,URINE CLEAR (CLEAR); *COLOR,URINE YELLOW (YELLOW); *KETONES,URINE TRACE (NEGATIVE); *PROTEIN,URINE 2+ (NEGATIVE); *UROBILINOGEN,URINE 0.2 E.U./dl (NORMAL); LEUKOCYTE ESTERASE ,URINE TRACE (NEGATIVE); NITRITE, URINE NEGATIVE (NEGATIVE); UGLUCOSE NEGATIVE (NEGATIVE)
[2024-08-31 16:16] LABS: BACTERIA,URINE FEW /HPF (NONE SEEN); RBC,URINE 0-3 /HPF (0-3)
[2024-08-31 16:17] LABS: SQUAMOUS EPITHELIAL CELL,UR FEW /HPF (NONE SEEN); YEAST,URINE FEW /HPF (NONE SEEN)
[2024-08-31 16:35] VITALS: BP 117/46; TEMP 98; O2SAT 92
[2024-08-31 19:54] VITALS: BP 113/57; TEMP 98.1; O2SAT 95
[2024-08-31] MEDS: ZOLPIDEM 5 MG TABLET PO PRN (20:39)
[2024-09-01 05:38] VITALS: BP 154/58; TEMP 97.6; O2SAT 99
[2024-09-01 07:02] LABS: BASOPHILS # (AUTO) 0.1 K/UL (0.0-0.2); BASOPHILS % (AUTO) 1.5 % (0.0-2.0); EOSINOPHILS # (AUTO) 0.2 K/uL (0.0-0.7); EOSINOPHILS % (AUTO) 3.1 % (0.0-7.0); HEMATOCRIT 31.9 % (31.2-41.9); HEMOGLOBIN 10.9 g/dL (10.9-14.3); LYMPHOCYTES % (AUTO) 19.6 % (20.5-51.5); MEAN CORPUSCULAR HEMOGLOBIN 32.7 uug (24.7-32.8); MEAN CORPUSCULAR HGB CONC 34 g/dL (32.3-35.6); MONOCYTES # (AUTO) 0.7 K/uL (0.1-1.30); NEUTROPHILS % (AUTO) 61.8 % (38.5-71.5); PLATELET COUNT (AUTO) 299 K/uL (179-408); RED BLOOD CELL COUNT(AUTO) 3.33 MIL/uL (3.63-4.92); RED CELL DISTRIBUTION WIDTH 17.2 % (12.3-17.7); WHITE BLOOD COUNT (AUTO) 4.9 K/uL (3.8-11.8)
[2024-09-01 07:12] LABS: DIFFERENTIAL COMMENT 1
[2024-09-01 07:23] LABS: ALANINE AMINOTRANSFERASE 31 U/L (14-59); ALKALINE PHOSPHATASE 75 U/L (50-136); ASPARTATE AMINOTRANSFERASE 25 U/L (15-37); BILIRUBIN,TOTAL 0.3 mg/dL (0.2-1.0); CALCIUM 8.7 mg/dL (8.5-10.1); CARBON DIOXIDE 33 mmol/L (21-32); CHLORIDE 104 mmol/L (98-107); CREATININE 0.6 mg/dL (0.6-1.3); GLUCOSE 82 mg/dL (74-106); POTASSIUM 3.7 mmol/L (3.5-5.1); SODIUM SERUM 141 mmol/L (136-145); TOTAL PROTEIN, SERUM 6.6 g/dL (6.4-8.2); UREA NITROGEN, BLOOD 14 mg/dL (7-18)
[2024-09-01 16:49] VITALS: BP 104/40; TEMP 97.6; O2SAT 97
[2024-09-01] MEDS: ENSURE ENLIVE (VAN) 240 ML LIQUID PO SCH (18:23)
[2024-09-01 20:14] VITALS: BP 123/48; TEMP 98.2; O2SAT 97
[2024-09-02 16:27] VITALS: BP 123/51; TEMP 97.6; O2SAT 99
[2024-09-02 20:52] VITALS: BP 122/53; TEMP 98.4; O2SAT 96
[2024-09-03 08:00] VITALS: BP 138/40; TEMP 98; O2SAT 96
[2024-09-03 16:00] VITALS: BP 124/60; TEMP 98; O2SAT 96
[2024-09-03 20:00] VITALS: BP 124/52; TEMP 97.9; O2SAT 96
[2024-09-04 06:55] VITALS: BP 136/56; TEMP 98.2; O2SAT 97
[2024-09-04 06:57] VITALS: TEMP 98.2
[2024-09-04 13:20] VITALS: BP 105/45; TEMP 98; O2SAT 97
[2024-09-04 18:08] VITALS: BP 112/46; TEMP 97.7; O2SAT 97
[2024-09-04 22:00] VITALS: BP 126/43; TEMP 208.9; TEMP 98.3; O2SAT 98
[2024-09-05 04:00] VITALS: BP 112/48; TEMP 97.5
[2024-09-05 18:37] VITALS: BP 95/40; TEMP 98.3
[2024-09-05 21:46] VITALS: BP 105/42; TEMP 98.3; O2SAT 95
[2024-09-06 06:00] VITALS: BP 107/47; TEMP 98.3; O2SAT 95
[2024-09-06 16:15] VITALS: BP 119/45; TEMP 97.5; O2SAT 96
[2024-09-06 16:17] VITALS: BP 114/51; TEMP 97.9; O2SAT 96
[2024-09-06 20:00] VITALS: BP 106/45; TEMP 97.7; O2SAT 97
[2024-09-07 06:12] VITALS: BP 119/47; TEMP 98.2; O2SAT 97
[2024-09-07 16:00] VITALS: BP 107/39; TEMP 97.4; O2SAT 99
[2024-09-07 19:55] VITALS: BP 106/45; TEMP 98; O2SAT 97
[2024-09-08 09:38] VITALS: BP 111/42; TEMP 98.1
[2024-09-08 19:59] VITALS: BP 109/43; TEMP 97.6; O2SAT 96
[2024-09-09 20:19] VITALS: BP 114/39; TEMP 97.9; O2SAT 98
[2024-09-10 05:49] VITALS: BP 134/48; TEMP 97.8; O2SAT 99
[2024-09-10 08:22] VITALS: BP 137/47
[2024-09-10] MEDS ORDERED: GABA-536 PO (13:07)
[2024-09-10] MEDS ORDERED: PANT40TA2 PO (13:07)
[2024-09-10] MEDS ORDERED: CELE100C PO (13:07)
[2024-09-10] MEDS ORDERED: ASPI81TA31 PO (13:07)
[2024-09-10] MEDS ORDERED: AMLO-212 PO (13:07)
[2024-09-10] MEDS ORDERED: LEVE750T4 PO (13:07)
[2024-09-10] MEDS ORDERED: AMIN887L21 PO (13:07)
[2024-09-10] MEDS ORDERED: APIX2.5T PO (13:07)
[2024-09-10] MEDS ORDERED: HYDR200T4 PO (13:07)
== END 2024-09-10 13:30 | disposition home health service (06) | DRG 91 ==
PROVIDERS: ADMIT Physical Medicine & Rehabilitation Pain Medicine; ATTEND Physical Medicine & Rehabilitation Pain Medicine
DX: G92.8 Other toxic encephalopathy (principal); A41.9 Sepsis, unspecified organism; E43 Unspecified severe protein-calorie malnutrition; D68.59 Other primary thrombophilia; N17.9 Acute kidney failure, unspecified; N39.0 Urinary tract infection, site not specified; E87.3 Alkalosis; F01.53 Vascular dementia, unspecified severity, with mood disturbance; F01.54 Vascular dementia, unspecified severity, with anxiety; I69.354 Hemiplegia and hemiparesis following cerebral infarction affecting left non-dominant side; E22.2 Syndrome of inappropriate secretion of antidiuretic hormone; D64.9 Anemia, unspecified; E78.5 Hyperlipidemia, unspecified; E83.39 Other disorders of phosphorus metabolism; G62.9 Polyneuropathy, unspecified; G89.29 Other chronic pain; M62.838 Other muscle spasm; I11.0 Hypertensive heart disease with heart failure; I48.0 Paroxysmal atrial fibrillation; I50.9 Heart failure, unspecified; M81.0 Age-related osteoporosis without current pathological fracture; R56.9 Unspecified convulsions; F32.A Depression, unspecified; M19.90 Unspecified osteoarthritis, unspecified site; M32.9 Systemic lupus erythematosus, unspecified; Z79.899 Other long term (current) drug therapy; Z86.711 Personal history of pulmonary embolism; Z96.653 Presence of artificial knee joint, bilateral
CPT/HCPCS: 36415; 85025; 97535-GO-CO; A4663